=== PATIENT | male | born 1965 | race African-American/Black ===

== ENCOUNTER 2017-04-12 20:57 | Emergency (ER) | payer SELFPAY ==
[~2017-04-12] VITALS: Ht 172.7 cm; Wt 73.0 kg
[2017-04-12 21:10] VITALS: BP 160/102
== END 2017-04-13 00:30 | disposition left against medical advice (07) ==
LOC: ER 21:27
DX: R68.84 Jaw pain (principal); Z53.21 Procedure and treatment not carried out due to patient leaving prior to being seen by health care provider